=== PATIENT | female | born 1990 | race Caucasian/White ===

== ENCOUNTER 2021-11-01 07:47 | Outpatient (REF) | payer OTHER, SELFPAY ==
[2021-11-01 08:47] LABS: COVID-19 Test Negative (Negative); IDNOW Serial# 16C4AD1C
== END 2021-11-01 07:48 | disposition home or self-care (01) ==
LOC: HO.LAB 07:47
PROVIDERS: Visit Provider Internal Medicine
DX: Z20.822 Contact with and (suspected) exposure to COVID-19 (principal)
CPT/HCPCS: 87635; C9803

== ENCOUNTER 2021-11-06 10:01 | Outpatient (REF) | payer OTHER, SELFPAY ==
[2021-11-06 10:37] LABS: COVID-19 Test Negative (Negative); IDNOW Serial# 08D9AD1C
== END 2021-11-06 10:02 | disposition home or self-care (01) ==
LOC: HO.LAB 10:01
PROVIDERS: Visit Provider Internal Medicine
DX: Z20.822 Contact with and (suspected) exposure to COVID-19 (principal)
CPT/HCPCS: 87635; C9803

== ENCOUNTER 2022-01-01 19:17 | Emergency (ER) | payer OTHER, SELFPAY ==
[2022-01-01 19:23] VITALS: BP 165/94; PULSE 126; RESP 22; TEMP 37.7; O2SAT 100; BMI 36.1
[2022-01-01 20:39] LABS: Appearance Urine TURBID; Color Urine RED; Glucose Urine UA NEG (NEG); Leukocyte Esterase Urine TRACE (NEG); MANUAL DIFF FLAG NO; Nitrite Urine POS (NEG); Specific Gravity - Urine >= 1.030 (1.005-1.025); UACC Culture Trigger YES; Urine Blood 3+ (NEG); Urine Ketones 5 MG/DL (NEG); Urine Protein 2+ MG/DL (NEG-TRACE)
[2022-01-01 20:41] LABS: Basophils Percent Auto 0.3 % (0-2); Eosinophils Absolute Auto 0.3 X10*3/uL (0.0-0.4); Eosinophils Percent Auto 3.2 % (0-4); Hematocrit 43.6 % (37.0-47.0); Hemoglobin 14.7 g/dl (12.0-16.0); Imm Gran Abs Auto 0.02 X10*3/uL (0.00-0.03); Imm Gran Pct Auto 0.2 % (0.0-0.4); Lymphocytes Absolute Auto 3.4 X10*3/uL (1.2-4.9); Lymphocytes Percent Auto 38.5 % (20-40); Mean Corpuscular HGB Conc 33.7 g/dl (31.0-35.0); Mean Platelet Volume 9.5 fL (9.4-12.3); Monocytes Absolute Auto 0.5 X10*3/uL (0.1-1.2); Neutrophils Absolute Auto 4.5 x10*3/uL (2.0-8.3); Neutrophils Percent Auto 51.8 % (45-73); Platelet Count 327 X10*3/uL (160-400); Red Blood Count 4.59 X10*6/uL (4.20-5.50); Red Cell Distribution Width 12.9 % (11.0-16.0); White Blood Count 8.8 X10*3/uL (4.8-10.8)
[2022-01-01 20:42] LABS: UPreg QC Valid YES; Urine Pregnancy NEGATIVE (NEGATIVE)
[2022-01-01 20:59] LABS: Alanine Aminotransferase 12 U/L (0-31); Albumin Level 4.2 g/dL (3.5-5.0); Alkaline Phosphatase 103 U/L (39-117); Anion Gap 10 (12-20); Aspartate Amino Transferase 15 U/L (5-31); Bilirubin Total < 0.2 mg/dL (0.0-1.0); Blood Urea Nitrogen 8 mg/dL (9-16); Calcium 9.5 mg/dL (8.4-10.2); Carbon Dioxide 28 mmol/L (22-29); Chloride 105 mmol/L (96-108); Creatinine Clr Calc Pharmacy 116.5; Estimated Glomerular Filt Rate > 60; Glucose Random 95 mg/dL (60-115); Potassium 3.9 mmol/L (3.3-5.1); Sodium 139 mmol/L (135-145); Total Protein 7.6 g/dL (6.5-8.0)
[2022-01-01 21:05] LABS: Mucus Urine 1+ /LPF; Squamous Epithelial Cell Urine 2+ /LPF; WBC Urine 0-2 /HPF (0-4)
[2022-01-01 21:32] LABS: Influenza A Negative (Negative); Influenza B2 Negative (Negative)
[2022-01-01 21:33] LABS: COVID-19 Test Negative (Negative); IDNOW Serial# 16C4AD1C
--- NOTE | 2022-01-01 23:34 | ED.HA ---
HPI - Headache General Chief Complaint: Headache Stated Complaint: migraine Time Seen by Provider: 01/01/22 23:34 Source: patient Mode of arrival: ambulatory Limitations: no limitations History of Present Illness HPI Narrative: Patient history of migraine in complaining of headache for last 4 days also some cold symptoms and low-grade fever associated with nausea and abdominal pain no chest pain no shortness of breath gets migraine very often to 3 times a month Related Data Previous Rx's Medication Instructions Recorded ctrunzqptz-uofwrbvyoldrz-ijkttxyw 1 cap PO Q6H PRN #20 cap 01/02/22 50 mg-300 mg-40 mg capsule (Fioricet) Allergies Allergy/AdvReac Type Severity Reaction Status Date / Time doxycycline [DOXYCYCLINE] Allergy Unknown UNKNOWN Unverified 05/24/20 19:34 hydromorphone [From DILAUDID] Allergy Unknown UNKNOWN Unverified 05/24/20 19:34 morphine [MORPHINE] Allergy Unknown UNKNOWN Unverified 05/24/20 19:34 Review of Systems Review of Systems: Yes all other systems are reviewed and are negative [facility] Social History Social History Advance Directives: No Advance Directives Information Provided: Yes Physical Exam Vital Signs: Vital Signs: Last Vital Signs Temp 99.9 F 01/01/22 19:23 Pulse 76 01/02/22 01:45 Resp 16 01/02/22 01:45 BP 126/78 01/02/22 01:45 Pulse Ox 98 01/02/22 01:45 BMI result Body Mass Index 36.1 Appearance: Alert. Oriented X3. No acute distress. ENT: Pharynx normal. Oral Mucosa moist no temporal artery tenderness Neck: Normal inspection. Neck supple. CVS: Normal heart rate and rhythm. Pulses normal. Respiratory: No respiratory distress. Equal air entry bilateral, Abdomen: Soft and nontender. Bowel sounds are present, no mass palpable, Skin: Skin warm and dry. Normal skin color. Normal skin turgor. Extremities: No lower extremity edema. No calf tenderness Neuro: Oriented X 3. MDM - Headache MDM Narrative Medical decision making narrative: Patient did not respond to Imitrex in like the side effect of Imitrex responded to IV Benadryl Reglan and Toradol discharge patient home Medical Records Medical records narrative: Patient history of migraine headache for response to Imitrex responded to IV Reglan Benadryl and Toradol will discharge patient home Lab Data Attestation: I reviewed the patient's lab results. Result diagrams: 01/01/22 20:28 01/01/22 20:29 Labs: Lab Results 01/01/22 01/01/22 01/01/22 Range/Units 19:52 19:52 20:28 WBC 8.8 (4.8-10.8) X10*3/uL RBC 4.59 (4.20-5.50) X10*6/uL Hgb 14.7 (12.0-16.0) g/dl Hct 43.6 (37.0-47.0) % MCV 95.0 (80.0-98.0) fL MCH 32.0 (27.0-33.0) pg MCHC 33.7 (31.0-35.0) g/dl RDW 12.9 (11.0-16.0) % Plt Count 327 (160-400) X10*3/uL MPV 9.5 (9.4-12.3) fL Immature Gran % (Auto) 0.2 (0.0-0.4) % Neut % (Auto) 51.8 (45-73) % Lymph % (Auto) 38.5 (20-40) % [place] % (Auto) 6.0 (2-11) % Eos % (Auto) 3.2 (0-4) % Baso % (Auto) 0.3 (0-2) % Lymph # (Auto) 3.4 (1.2-4.9) X10*3/uL [place] # (Auto) 0.5 (0.1-1.2) X10*3/uL Eos # (Auto) 0.3 (0.0-0.4) X10*3/uL Baso # (Auto) 0.0 (0.0-0.2) X10*3/uL Abs Immat Gran (auto) 0.02 (0.00-0.03) X10*3/uL Absolute Neuts (auto) 4.5 (2.0-8.3) x10*3/uL Absolute Nucleated RBC 0.000 (0.0-0.012) X10*3/uL Nucleated RBC % (auto) 0.0 (0.0-0.2) /100WBC Sodium (135-145) mmol/L Potassium (3.3-5.1) mmol/L Chloride (96-108) mmol/L Carbon Dioxide (22-29) mmol/L Anion Gap (12-20) BUN (9-16) mg/dL Creatinine (0.5-1.4) mg/dL Estim Creat Clear Calc Estimated GFR Random Glucose (60-115) mg/dL Calcium (8.4-10.2) mg/dL Total Bilirubin (0.0-1.0) mg/dL AST (5-31) U/L ALT (0-31) U/L Alkaline Phosphatase (39-117) U/L Total Protein (6.5-8.0) g/dL Albumin (3.5-5.0) g/dL Urine Color Urine Appearance Urine pH (5.0-8.0) Ur Specific [place] (1.005-1.025) Urine Protein (NEG-TRACE) MG/DL Urine Glucose (UA) (NEG) MG/DL Urine Ketones (NEG) MG/DL Urine Blood (NEG) Urine Nitrite (NEG) Ur Leukocyte Esterase (NEG) Urine RBC (0) /HPF Urine WBC (0-4) /HPF Ur Squamous Epith Cells /LPF Urine Bacteria /LPF Urine Mucus /LPF Urine Test (NEGATIVE) COVID-19 (HOLLY) Negative (Negative) COVID-19 Clin Com See Note Influenza Type A (KEANU) Negative (Negative) Influenza Type B (KEANU) Negative (Negative) Influenza A & B Note See Note 01/01/22 01/01/22 01/01/22 Range/Units 20:28 20:28 20:29 WBC (4.8-10.8) X10*3/uL RBC (4.20-5.50) X10*6/uL Hgb (12.0-16.0) g/dl Hct (37.0-47.0) % MCV (80.0-98.0) fL MCH (27.0-33.0) pg MCHC (31.0-35.0) g/dl RDW (11.0-16.0) % Plt Count (160-400) X10*3/uL MPV (9.4-12.3) fL Immature Gran % (Auto) (0.0-0.4) % Neut % (Auto) (45-73) % Lymph % (Auto) (20-40) % [place]field % (Auto) (2-11) % Eos % (Auto) (0-4) % Baso % (Auto) (0-2) % Lymph # (Auto) (1.2-4.9) X10*3/uL [place] # (Auto) (0.1-1.2) X10*3/uL Eos # (Auto) (0.0-0.4) X10*3/uL Baso # (Auto) (0.0-0.2) X10*3/uL Abs Immat Gran (auto) (0.00-0.03) X10*3/uL Absolute Neuts (auto) (2.0-8.3) x10*3/uL Absolute Nucleated RBC (0.0-0.012) X10*3/uL Nucleated RBC % (auto) (0.0-0.2) /100WBC Sodium 139 (135-145) mmol/L Potassium 3.9 (3.3-5.1) mmol/L Chloride 105 (96-108) mmol/L Carbon Dioxide 28 (22-29) mmol/L Anion Gap 10 L (12-20) BUN 8 L (9-16) mg/dL Creatinine 0.66 (0.5-1.4) mg/dL Estim Creat Clear Calc 116.5 Estimated GFR > 60 Random Glucose 95 (60-115) mg/dL Calcium 9.5 (8.4-10.2) mg/dL Total Bilirubin < 0.2 (0.0-1.0) mg/dL AST 15 (5-31) U/L ALT 12 (0-31) U/L Alkaline Phosphatase 103 (39-117) U/L Total Protein 7.6 (6.5-8.0) g/dL Albumin 4.2 (3.5-5.0) g/dL Urine Color RED A Urine Appearance TURBID Urine pH 5.0 (5.0-8.0) Ur Specific [place] >= 1.030 H (1.005-1.025) Urine Protein 2+ H (NEG-TRACE) MG/DL Urine Glucose (UA) NEG (NEG) MG/DL Urine Ketones 5 (NEG) MG/DL Urine Blood 3+ H (NEG) Urine Nitrite POS H (NEG) Ur Leukocyte Esterase TRACE H (NEG) Urine RBC 76-150 H (0) /HPF Urine WBC 0-2 (0-4) /HPF Ur Squamous Epith Cells 2+ /LPF Urine Bacteria NONE /LPF Urine Mucus 1+ /LPF Urine Test NEGATIVE (NEGATIVE) COVID-19 (HOLLY) (Negative) COVID-19 Clin Com Influenza Type A (KEANU) (Negative) Influenza Type B (KEANU) (Negative) Influenza A & B Note Discharge Plan Discharge Clinical Impression: Migraine Patient Disposition: Home, Self-Care Instructions: Migraine Headache (ED) Additional Instructions: Rest at home Take medication for migraine as prescribed and follow with PCP Prescriptions: New rbyikjacdf-awewtwllpexne-tnkb [Fioricet] 50-300-40 mg capsule 1 cap PO Q6H PRN (Reason: headache) Qty: 20 0RF Interventions: ED Discharge Assessment Last Done: 01/02/22 02:24 Discharge Date/Time: 01/02/22 02:25
[2022-01-02] MEDS: SUMAtriptan succinate 6 MG/0.5 ML VIAL SUBCUT (00:08)
[2022-01-02] MEDS: Ondansetron ODT 4 MG TAB.RAPDIS TRANSLINGU (00:08)
[2022-01-02] MEDS: diphenhydrAMINE HCL 50 MG/ML VIAL 25 MG IVPUSH (01:23)
[2022-01-02] MEDS: Ketorolac Tromethamine 30 MG/ML VIAL IVPUSH (01:24)
[2022-01-02] MEDS: Metoclopramide HCl 10 MG/2 ML VIAL IVPUSH (01:24)
[2022-01-02 01:45] VITALS: BP 126/78; PULSE 76; RESP 16; O2SAT 98
== END 2022-01-02 02:25 | disposition home or self-care (01) ==
PROVIDERS: Emergency Provider Internal Medicine; PCP Internal Medicine
DX: G43.009 Migraine without aura, not intractable, without status migrainosus (principal); Z20.822 Contact with and (suspected) exposure to COVID-19
CPT/HCPCS: 80053; 81001; 81025; 85025; 87086; 87502; 87635; 96372; 96374; 96375; 99284; J1200; J1885; J2765; J3030

== ENCOUNTER 2025-04-06 13:49 | Outpatient (AMB) | payer OTHER, SELFPAY ==
--- NOTE | 2025-04-06 13:53 | MHC.OFFVIS ---
Intake Visit Reasons: sooner appt med issues Allergies doxycycline (DOXYCYCLINE) Allergy (Unknown, Unverified 04/06/25 13:54) UNKNOWN hydromorphone (From DILAUDID) Allergy (Unknown, Unverified 04/06/25 13:54) UNKNOWN morphine (MORPHINE) Allergy (Unknown, Unverified 04/06/25 13:54) UNKNOWN Medication List - Last Reconciled 04/06/25 by Tiffanie Kaiser, TU aripiprazole 15 mg PO QAM soajvmjidn-cqjdvbmaviobe-jfuo 50-300-40 mg (Fioricet) 1 cap PO Q6H PRN dextroamphetamine-amphetamine 20 mg ER (Adderall XR) 20 mg orally 1 cap in the morning and 1 cap at noon; Partial Fill upon patient request. 30 days pantoprazole 40 mg PO DAILY tirzepatide (weight loss) (Zepbound) 10 mg subcut QWEEK trazodone 50 - 100 mg PO BEDTIME PRN vitamin B complex 1 cap PO DAILY zolpidem 5 mg PO BEDTIME PRN HPI Comments Details: She was tired. She started Zepbound for weight loss around 01/2025 and noticed she was becoming much more tired beginning around 02/2025. She started 10mg dose this past week. She had labs done by weight management clinic which apparently showed some low vitamin levels that were replaced. Adderall seems to only be lasting about 4 hours now. She was extremely tired in the afternoon and could fall asleep easily. She would not drive after 4pm because of how tired tired she was. Energy and focus was not so good anymore. Sleep at night was okay with trazodone 100mg prescribed by psychiatrist in addition to zolpidem 5mg. Headaches were okay. Prior to starting Zepbound, Adderall XR 20mg twice a day helped with energy, feeling less fatigue, ability to focus and get tasks done. She was started on trazodone 100mg in addition to zolpidem by psychiatrist at the beginning of 2024 and sleep was better, able to fall asleep and stay asleep. Previously, was exhausted by 6:30pm. Had trouble maintaining sleep. She tried hydroxyzine, but was still waking up during the night and not able to fall back to sleep. Medication made her feel more tired. She also trazadone and melatonin which did not help. Headaches are okay, often around menses with some photophobia, sonophobia, and nausea. She has tried Tylenol and Excedrin for headaches which do not help. 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 In 2018, she began feeling tired and exhausted constantly and sleeping excessively. At that time, she was getting 8 hours of restful sleep at night and then napping in the morning from 9:30 to 12:30 after taking her kids to school. She still feels tired. She cannot sit and watch TV and is very sleepy. She's had a sleep study which was unremarkable. The symptoms came on without any recent sickness a viral syndrome preceding the symptoms. She's had extensive lab work which has been unremarkable. She does not feel depressed or anxious. Her home life is stable. [facility] Medical History (Updated 04/06/25 @ 13:57 by Tiffanie Kaiser CNP) Demyelinating disease of central nervous system Chronic fatigue syndrome Fibromyalgia Hypersomnia Tension headache Hypertension Insomnia Menstrual migraine Review of Systems Const Denies chills, Denies daytime sleepiness, Reports difficulty sleeping, Reports fatigue, Denies fever(s), Denies frequent falls, Reports headache(s), Denies increased appetite, Denies poor appetite, Denies snoring, Denies weakness, Denies weight gain and Denies weight loss Eyes Denies loss of vision ENT Denies vertigo, Denies dizziness, Reports headache(s) and Denies neck pain Card Denies chest pain at rest, Denies chest pain with activity, Denies syncope, Denies leg edema, Denies palpitations, Denies dyspnea and Denies dyspnea on exertion Resp Denies cough, Denies dyspnea, Denies dyspnea on exertion and Denies snoring GI Denies abdominal pain, Denies constipation, Denies heartburn, Denies diarrhea and Denies nausea Denies urinary frequency, Denies urinary incontinence and Denies urinary urgency Musc Denies abnormal gait, Reports back pain, Denies myalgias, Denies arthralgias, Denies neck pain, Denies numbness and Denies tingling Neuro Denies abnormal gait, Denies vertigo, Denies dizziness, Denies syncope, Denies frequent falls, Reports headache(s), Denies lack of coordination, Denies loss of vision, Denies memory loss, Denies numbness, Denies Other visual disturbances, Denies restless legs, Denies seizure-like activity, Denies tingling, Denies paresthesias, Denies tremor(s) and Denies weakness Psych Reports anxiety, Reports depression, Denies auditory hallucinations, Denies memory loss and Denies visual hallucinations Endo Reports fatigue and Denies palpitations Physical Exam Const Other: General Appearance:? normal, in no acute distress. Heart:? S1, S2 normal, no murmurs. Lungs:? clear anteriorly and posteriorly. Musculoskeletal:? normal. Extremities:? no edema. Psych:? alert, oriented, cognitive function intact, cooperative with exam. Neuro Other: Abnormal Neurological Findings:?none.? Mental Status: alert and oriented X 3. Normal attention, orientation, memory, and affect. Cranial Nerves: Pupils are equal, round, and reactive to light. External ocular muscles are intact. Visual torres are full, no ptosis. Face is symmetrical, no facial weakness or droop. Facial sensations are normal. Tongue protrudes in midline. Palate elevates symmetrically. Shoulder shrugging is normal Motor Examination: Normal muscle tone, bulk and strength. No atrophy or fasciculations. No drift of the extended upper extremities. DTR 2+. Plantars are flexor. Straight Leg Raisin degrees. Sensory Exam: Normal light touch, temperature, pinprick, vibration, and joint-position sensations. Rhomberg sign is absent. Coordination: No ataxia. No titubation. Toxroc-oi-cyem, jzgg-nadz-syiu test, and rapid alternating movements were normal. Gait Exam: Within normal limits. Cerebellar Signs: Drpgji-zd-niub and hqti-kk-ijos is normal. No dysdiadochokinesia. Extrapyramidal System: No tremor, rigidity with normal facial expressions. No bradykinesia. No bradyphrenia. Normal arm swing and posture. No propulsion or retropulsion. Speech: Normal. No dysphasia or dysarthria. Assessment & Plan Assessment & Plan (1) Chronic fatigue syndrome: Code(s): G93.32 - Myalgic encephalomyelitis/chronic fatigue syndrome Category: Medical Plan: Increased fatigue likely related to Zepbound, as fatigue is a side effect of this medication and symptoms started about a month after starting this medication. Recommend discussing with provider if she could still benefit from this medication at a lower dose, which may help to reduce side effects. In the mean time, will try to add additional small Adderall dose in afternoon. Start Adderall 10mg 1 tablet at noon (with Adderall XR 20mg capsule at noon), use/side effects reviewed. Continue Adderall XR 20mg 1 capsule twice a day. (2) Insomnia: Code(s): G47.00 - Insomnia, unspecified Category: Medical Qualifiers: Insomnia type: unspecified Qualified Code(s): G47.00 - Insomnia, unspecified Plan: Continue zolpidem 5mg 1 tablet at bedtime, use/side effects reviewed. (3) Menstrual migraine: Code(s): G43.829 - Menstrual migraine, not intractable, without status migrainosus Category: Medical Qualifiers: Status migrainosus presence: without status migrainosus Intractability: not intractable Qualified Code(s): G43.829 - Menstrual migraine, not intractable, without status migrainosus Plan Meds tried for sleep: Trazodone, hydroxyzine, melatonin Medications: New dextroamphetamine-amphetamine 10 mg (Adderall) Partial Fill upon patient request. 10 mg PO .daily at noon 30 tabs 0RF 30 days Coding Level of Care Code Est Pt Level 4 (17390) Diagnoses Chronic fatigue syndrome G93.32 Insomnia, unspecified type G47.00 Insomnia type: unspecified Menstrual migraine without status migrainosus, not intractable G43.829 Status migrainosus presence: without status migrainosus Intractability: not intractable
--- OUTSIDE RECORDS SUMMARY | 2025-04-06 14:02 | XMS_ITS | Clinical Summary ---
Author Organization [facility] [address] [place] [address] [place] [phone] Phone Care Team Providers Care Ceramics Technician Name Role Phone Sheree Astudillo MD Primary Care Provider Allergies Active Allergy Reactions Criticality Noted Date Comments Bupropion 10/09/2022 Itching, hives Doxycycline Hives,Swelling High 01/20/2006 Hydromorphone Hcl Hives 06/17/2012 Latex Hives 09/03/2011 Levonorgestrel-Ethinyl Estrad Swelling Medium 01/20/2006 rash Morphine Shortness of breath,Wheezing High 07/08/2016 Omeprazole Itching,Swelling 07/08/2016 Medications albuterol sulfate (ProAir RespiClick) 90 mcg/actuation aerosol powdr breath activated Inhale 8 g into the lungs every 6 hours as needed for Other (SOB, Wheeing, Cough). Dispense 1 inhaler 06/25/20 21 Active amphetamine-d extroamphetam ine XR (ADDERALL XR) 20 mg 24 hr capsule Take 1 Capsule by mouth every morning. Prescribed by Neurologist [place] [facility] Active amphetamine-d extroamphetam ine (ADDERALL) 10 mg tablet 2 tablets (20 mg total). Active diclofenac (VOLTAREN) 1 % topical gel Apply 2 g topically 4 times daily. Shoulder Pain 06/13/20 24 Active wheat dextrin 3 gram/4 gram powder Take 4 g by mouth daily. 10/13/19 24 Active cholecalcifer ol (VITAMIN D-3) 50 mcg (2,000 unit) capsule TAKE 1 CAP BY MOUTH DAILY FOR 90 DAYS. 90 capsule 07/28/20 24 Active pantoprazole (PROTONIX) 40 mg EC tablet TAKE 1 TABLET BY MOUTH EVERY DAY DO NOT CRUSH, CHEW, OR SPLIT 90 tablet 01/26/20 25 Active b complex vitamins capsule TAKE 1 CAPSULE BY MOUTH EVERY DAY 90 capsule 1 02/18/20 25 Active tirzepatide, weight loss, (Zepbound) 10 mg/0.5 mL injection Inject 0.5 mL (10 mg total) under the skin every 7 (seven) days. 2 mL 04/03/20 25 025 Active tirzepatide, weight loss, (Zepbound) 7.5 mg/0.5 mL injectionIndi cations:Overw eight (BMI 25.0-29.9) Inject 0.5 mL (7.5 mg total) under the skin every 7 (seven) days. 2 mL 02/24/20 25 025 Discontinued tirzepatide, weight loss, (Zepbound) 10 mg/0.5 mL injection Inject 0.5 mL (10 mg total) under the skin every 7 (seven) days. 2 mL 03/21/20 25 025 Discontinued(Re order) Active Problems Problem Noted Date Diagnosed Date Iron deficiency anemia 07/11/2021 Erosive esophagitis 10/11/2018 Snoring 05/05/2018 Overview (06/23/2024): 04/2018 Home Sleep Study did not reveal sleep apnea. Migraine without status migrainosus, not intract able 04/04/2017 Hypokalemia 10/17/2016 Pure hypercholesterolemia 09/19/2016 Hand pain 02/23/2013 Overview (06/23/2024): Right thumb IP joint - started early January 2013 Eczema 01/25/2013 Depression 04/25/2011 Headache 08/17/2008 Overview (06/23/2024): Has seen neurologist. 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 Infectious mononucleosis 09/01/2001 Encounters Date Type Department Care Team Description 02/23/2025 8:15 AM EDT Office Visit Bariatric Surgery - [address] [place] [address] Rica Sullivan PA Overweight (BMI 25.0-29.9) (Primary Dx) from Last 3 Months Immunizations Name Administration Dates Next Due DTP 07/04/1993, 0,01/19/1989,1988,1988 Hepatitis B Pediatric (Enger ix B; Recombivax HB) to less than 20 yo 07/31/2000,03/31/2000,02/27/2000 Influenza trivalent, 0.5mL, preservative free (Fluarix; FluLaval; Fluzone) ages 6mo and older (Afluria) 3 years and older 06/02/2011,08/04/2006,06/19/2005 MMR, measles mumps and rubel la Live (Priorix; M-M-R II) 12mo and older 11/23/1989,09/04/1989 OPV 07/04/1993, 0,1988,1987 Td Tetanus diptheria (Tdvax) 7yo and older 04/07/2011,04/01/2001 Tdap Tetanus diptheria acell ular pertussis (Boostrix; Adacel) 7yo and older 06/25/2021 Varicella live (Varivax) 12m o and older 06/18/1996 Surgical History Surgery Date Site/Laterality Comments OTHER SURGICAL HISTORY PROCEDURE: IL LIG/TRNSXJ FLP TUBE ABDL/VAG APPR UNI/BI BARIATRIC SURGERY 05/2016 PROCEDURE: IL LAPS GSTRC RSTRICTIV PX LONGITUDINAL GASTRECTOMY; COMMENT: gastric sleeve by Dr. 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 DX:Tietze's dis ease Migraine, unspecified, witho ut mention of intractable migraine without mention of status migrainosus 06/20/2005 DX:Migraine, uns pecified, without mention of intractable migraine without mention of status migrainosus Infectious mononucleosis 09/01/2001 DX:Infe ctious mononucleosis Unspecified asthma(493.90) 06/20/2004 DX:Un specified asthma(493.90) Venereal disease, unspecified 07/15/2005 DX :Venereal disease, unspecified Esophageal reflux DX:Esophageal reflux Obesity DX:Obesity Eczema 01/25/2013 DX:Eczema Family history of breast cancer 06/07/2013 DX:Family history of breast cancer; COMMENT: pt BRCA negative, low risk Careyck = 10.5% Erosive esophagitis 10/11/2018 DX:Erosive e sophagitis Tobacco use 10/11/2018 DX:Tobacco use Sore throat DX:Sore throat Dysphagia DX:Dysphagia Dysphagia DX:Dysphagia Hiatal hernia DX:Hiatal hernia History of gastric surgery DX:Hi story of gastric surgery Gastro-esophageal reflux dis ease without esophagitis DX:Gastro-esophageal reflux disease without esophagitis Family History Medical History Relation Name Comments Breast cancer Aunt paternal aunt Arthritis Father Coronary artery disease Father bypa ss, [place] Diabetes Father Hypertension Father Stroke Father Other: ca ovaries Father's side great aun t Colon cancer Maternal Grandfather Lung cancer Maternal Grandfather smoker Other: melanona Maternal Grandmother Other: ovarian cancer Maternal Grandmother Arthritis Mother Coronary artery disease Mother bypa ss Diabetes Mother Spontaneous Abortions Mother Breast cancer Mother's side 1 maternal au nt Colon cancer Mother's side 1 great aunt Ovarian cancer Mother's side 1 maternal a unt >40 Lung cancer Mother's side 2 mat great au nt/ 2nd cousin Hypertension Paternal Grandfather Other: cancer of lung Uncle patern al uncle-possible other cancer too Blindness Neg Hx Cataracts Neg Hx Glaucoma Neg Hx Macular degeneration Neg Hx Strabismus Neg Hx Relation Name Status Comments Aunt Father Father's side Maternal Grandfather Maternal Grandmother Mother Alive Mother's side 1 Mother's side 2 Paternal Grandfather Paternal Grandmother Sister Alive Uncle Social History Tobacco Use Types Packs/Day Years Used Date Smoking Tobacco: Every Day Cigarettes 0.5 7.3 Started: 12/17/2017 Smokeless Tobacco: Never Alcohol Use Standard Drinks/Week Comments No 0 (1 standard drink = 0.6 oz pur e alcohol) Comments Unknown Sex and Gender Information Value Date Recorded Sex Assigned at Not on file Legal Sex Female 10:59 PM EST Gender Identity Not on file Sexual Orientation Not on file Obstetrics History Last Filed Vital Signs Vital Sign Reading Time Taken Comments Blood Pressure 126/79 02/23/2025 8:14 AM EDT Pulse 130 02/23/2025 8:14 AM EDT Temperature 36.6 C (97.9 F) 02/23/2025 8:14 AM EDT Respiratory Rate - - Oxygen Saturation - - Inhaled Oxygen Concentration - - Weight 67.1 kg (148 lb) 02/23/2025 8:14 AM EDT Height 152.4 cm (5') 02/23/2025 8:14 AM EDT Body Mass Index 28.9 02/23/2025 8:14 AM EDT Plan of Treatment Upcoming Encounters Date Type Department Care Team (Late st Contact Info) Description 06/20/2025 10:00 AM EDT Office Visit Bariatric Surgery - [place] [address] [facility] [address] [place] [phone] Rica Sullivan PA [address] [address] Health Maintenance Due Date Last Done Comments Pneumococcal Vaccine: Pediatrics (0 to 5 Years) and At-Risk Patients (6 to 49 Years) (1 of 2 - PCV) 2007 Social Influencers of Health Screening 08/10/2022 COVID-19 Vaccine (3 - season) 2024 01/22/2021, 12/26/2020 Depression Screening 09/07/2024 Influenza Vaccine (#1) 2025 1, 08/04/2006, 06/19/2005 Hypertension/CHF/CAD Annual BMP Blood Test 12/22/2025 12/22/2024, 04/11/2024, 04/11/2024 Cervical Cancer Screening: HPV 07/04/2027 07/04/2022 Cholesterol Screening (Lipid Panel) 06/09/2028 06/09/2023 DTaP,Tdap,and Td Vaccines (9 - Td or Tdap) 06/25/2031 06/25/2021, 04/07/2011, 04/01/2001, Additional history exists MMR Vaccines Completed 11/23/1989, 09/04/1989 IPV Vaccines Completed 07/04/1993, 11/05, 1988, Additional history exists Varicella Vaccines Aged Out 06/18/1996 No longer eligible based on patient's age to complete this topic Hepatitis B Vaccines Completed 07/31/2000, 03/31/2000, 02/27/2000 HIV Screening Completed 04/22/2016 Hepatitis C Screening Completed 04/22/2016 HIB Vaccines Aged Out No longer eligi ble based on patient's age to complete this topic HPV Vaccines Aged Out No longer eligi ble based on patient's age to complete this topic Hepatitis A Vaccines Aged Out No long er eligible based on patient's age to complete this topic Meningococcal ACWY Vaccine Aged Out N o longer eligible based on patient's age to complete this topic Meningococcal B Vaccine Aged Out No l onger eligible based on patient's age to complete this topic RSV Immunization Patients Under 20 months Aged Out No longer eligible based on patient's age to complete this topic Procedures Procedure Name Priority Date/Time Associated Diagnosis Comments COMPREHENSIVE METABOLIC PANEL Routine 12/22/2024 9:01 AM EDT History of Danny-en-Y gastric bypass Obesity (BMI 30.0-34.9) LIPID PANEL Routine 06/09/2023 HPV Routine 07/04/2022 HEPATITIS C SCREENING Routine 04/22/2016 HIV SCREENING Routine 04/22/2016 from Last 3 Months or Most Recently Relevant to Health Maintenance Results * (ABNORMAL) Comprehensive metabolic panel (12/22/2024 9:01 AM EDT) Sodium 137 133 - 145 mmol/L LAB CHEMISTRY METHOD 12/22/2024 11:20 AM EDT [facility] Potassium 4.4 3.5 - 5.5 mmol/L LAB CHEMISTRY METHOD 12/22/2024 11:20 AM [facility] Chloride 104 96 - 110 mmol/L LAB CHEMISTRY METHOD 12/22/2024 11:20 AM [facility] CO2 25 21 - 32 mmol/L LAB CHEMISTRY METHOD 12/22/2024 11:20 AM [facility] Anion Gap 8 3 - 11 LAB CHEMISTRY METHOD 12/22/2024 11:20 AM [facility] Glucose 120(H) 70 - 100 mg/dL LAB CHEMISTRY METHOD 12/22/2024 11:20 AM [facility] BUN 7 5 - 25 mg/dL LAB CHEMISTRY METHOD 12/22/2024 11:20 AM [facility] Creatinine 0.83 0.50 - 1.10 mg/dL LAB CHEMISTRY METHOD 12/22/2024 11:20 AM [facility] eGFR 94 >=60 mL/min/1. 73m2 LAB CHEMISTRY METHOD 12/22/2024 11:20 AM [facility] Comment:Calculation based on the Chronic Kidney Disease Epidemiology Collaboration (CKD-EPI) equation refit without adjustment for race. BUN/Creatinine Ratio 8.4 LAB CHEMISTRY METHOD 12/22/2024 11:20 AM [facility] Calcium 9.4 8.5 - 10.5 mg/dL LAB CHEMISTRY METHOD 12/22/2024 11:20 AM [facility] AST (SGOT) 22 10 - 42 unit/L LAB CHEMISTRY METHOD 12/22/2024 11:20 AM [facility] ALT (SGPT) 18 10 - 60 unit/L LAB CHEMISTRY METHOD 12/22/2024 11:20 AM [facility] Alkaline Phosphatase 97 42 - 121 unit/L LAB CHEMISTRY METHOD 12/22/2024 11:20 AM [facility] Total Protein 7.5 6.0 - 8.0 g/dL LAB CHEMISTRY METHOD 12/22/2024 11:20 AM EDT [facility] Albumin 3.6 3.2 - 5.0 g/dL LAB CHEMISTRY METHOD 12/22/2024 11:20 AM EDT [facility] Total Bilirubin 0.3 0.0 - 1.4 mg/dL LAB CHEMISTRY METHOD 12/22/2024 11:20 AM EDT [facility] Blood Venous blood specimen / Unknown Venipuncture / Unknown 12/22/2024 9:01 AM EDT 12/22/2024 9:01 AM EDT Rica COATES LAB BLOOD ORDERABLES Final R esult [facility] ([facility]) [facility] [address] [place] [address], * (ABNORMAL) Lipid panel (06/09/2023) [facility] LDL/HDL Ratio 4 0 - 4 Triglycerides 92 0 - 150 mg/dL Cholesterol 207(A) 0 - 200 mg/dL HDL 58 >=40 mg/dL LDL Cholesterol 131(A) 0 - 100 mg/dL Blood Venous blood specimen / Unknown Result [facility] Provider LAB BLOOD ORDERABLES Rupal l Result * Cervical Cancer Screening: HPV (07/04/2022) [facility] Cervical Cancer Screening: HPV Negative, Abstracted Historical Provider HEALTH MAINTENANCE Final Result * HIV Screening (04/22/2016) [facility] HIV Screening Abstracted Result [facility] Provider HEALTH MAINTENANCE Final Result * Hepatitis C Screening (04/22/2016) [facility] Hepatitis C Screening Abstracted Historical Provider HEALTH MAINTENANCE Final Result from Last 3 Months or Most Recently Relevant to Health Maintenance Insurance [facility] Care Teams Ceramics Technician Relationship Specialty Start Date End Date Sheree Astudillo MD [address] [place] [phone] PCP - General Internal Medicine 07/28/24
--- OUTSIDE RECORDS SUMMARY | 2025-04-06 14:02 | XMS_ITS ---
Author Name [facility] Organization Unknown Care Team Organization Name Specialty Phone Email Start Date End Da te [facility] LYUBOV GARIMA Primary Care 07/15/2022 4
== END 2025-04-06 14:16 | disposition home or self-care (01) ==
LOC: HO.HSM 13:49
PROVIDERS: PCP Internal Medicine; Visit Provider Registered Nurse
DX: G93.32 Myalgic encephalomyelitis/chronic fatigue syndrome (principal); G47.00 Insomnia, unspecified; G43.829 Menstrual migraine, not intractable, without status migrainosus
CPT/HCPCS: 99214

== ENCOUNTER → 2025-04-06 13:49 | Outpatient (BNVA) | payer OTHER, SELFPAY | PROVIDERS: PCP Internal Medicine; Visit Provider Registered Nurse | DX: G93.32 Myalgic encephalomyelitis/chronic fatigue syndrome (principal); G47.00 Insomnia, unspecified; G43.829 Menstrual migraine, not intractable, without status migrainosus | CPT/HCPCS: 99212 ==

== ENCOUNTER 2025-07-06 08:58 | Outpatient (AMB) | payer OTHER, SELFPAY ==
--- NOTE | 2025-07-06 09:05 | MHC.OFFVIS ---
Intake Visit Reasons: 1M Chronic fatigue, insomnia Allergies doxycycline (DOXYCYCLINE) Allergy (Unknown, Unverified 07/06/25 09:06) UNKNOWN hydromorphone (From DILAUDID) Allergy (Unknown, Unverified 07/06/25 09:06) UNKNOWN morphine (MORPHINE) Allergy (Unknown, Unverified 07/06/25 09:06) UNKNOWN Medication List - Last Reconciled 07/06/25 by Tiffanie Kaiser, TU aripiprazole 15 mg PO QAM tmavdklahg-umvuuwztyskqd-gcmd 50-300-40 mg (Fioricet) 1 cap PO Q6H PRN dextroamphetamine-amphetamine 10 mg (Adderall) 10 mg PO .daily at noon 30 days dextroamphetamine-amphetamine 20 mg ER (Adderall XR) 20 mg orally 1 cap in the morning and 1 cap at noon; Partial Fill upon patient request. 30 days pantoprazole 40 mg PO DAILY tirzepatide (weight loss) (Zepbound) 10 mg subcut QWEEK trazodone 50 - 100 mg PO BEDTIME PRN vitamin B complex 1 cap PO DAILY zolpidem 5 mg PO BEDTIME PRN 30 days HPI Comments Details: She was doing okay. Increased afternoon dose of Adderall was helping. Energy and focus was better with medication. Daily functioning was improved. She was able to get through the afternoon and evening okay. She was falling asleep around 9:30-10pm and sleep at night was okay. Headaches were okay. Increased fatigued starting around 02/2025. Started Zepbound for weight loss around 01/2025, labs done by weight management clinic apparently showed some low vitamin levels that were replaced. Adderall was not lasting as long. Extremely tired in the afternoon and could fall asleep easily, was not driving after 4pm because of how tired she was. Sleep was okay at night with medications. Previously, Adderall XR 20mg twice a day helped with energy, feeling less fatigue, ability to focus and get tasks done. She was started on trazodone 100mg in addition to zolpidem by psychiatrist at the beginning of 2024 and sleep was better, able to fall asleep and stay asleep. Previously, was exhausted by 6:30pm. Had trouble maintaining sleep. She tried hydroxyzine, but was still waking up during the night and not able to fall back to sleep. Medication made her feel more tired. She also trazadone and melatonin which did not help. Headaches are okay, often around menses with some photophobia, sonophobia, and nausea. She has tried Tylenol and Excedrin for headaches which do not help. 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 In 2018, she began feeling tired and exhausted constantly and sleeping excessively. At that time, she was getting 8 hours of restful sleep at night and then napping in the morning from 9:30 to 12:30 after taking her kids to school. She still feels tired. She cannot sit and watch TV and is very sleepy. She's had a sleep study which was unremarkable. The symptoms came on without any recent sickness a viral syndrome preceding the symptoms. She's had extensive lab work which has been unremarkable. She does not feel depressed or anxious. Her home life is stable. [facility] Medical History (Updated 04/06/25 @ 13:57 by Tiffanie Kaiser CNP) Demyelinating disease of central nervous system Chronic fatigue syndrome Fibromyalgia Hypersomnia Tension headache Hypertension Insomnia Menstrual migraine Review of Systems Const Denies chills, Denies daytime sleepiness, Reports difficulty sleeping, Reports fatigue, Denies fever(s), Denies frequent falls, Reports headache(s), Denies increased appetite, Denies poor appetite, Denies snoring, Denies weakness, Denies weight gain and Denies weight loss Eyes Denies loss of vision ENT Denies vertigo, Denies dizziness, Reports headache(s) and Denies neck pain Card Denies chest pain at rest, Denies chest pain with activity, Denies syncope, Denies leg edema, Denies palpitations, Denies dyspnea and Denies dyspnea on exertion Resp Denies cough, Denies dyspnea, Denies dyspnea on exertion and Denies snoring GI Denies abdominal pain, Denies constipation, Denies heartburn, Denies diarrhea and Denies nausea Denies urinary frequency, Denies urinary incontinence and Denies urinary urgency Musc Denies abnormal gait, Reports back pain, Denies myalgias, Denies arthralgias, Denies neck pain, Denies numbness and Denies tingling Neuro Denies abnormal gait, Denies vertigo, Denies dizziness, Denies syncope, Denies frequent falls, Reports headache(s), Denies lack of coordination, Denies loss of vision, Denies memory loss, Denies numbness, Denies Other visual disturbances, Denies restless legs, Denies seizure-like activity, Denies tingling, Denies paresthesias, Denies tremor(s) and Denies weakness Psych Reports anxiety, Reports depression, Denies auditory hallucinations, Denies memory loss and Denies visual hallucinations Endo Reports fatigue and Denies palpitations Physical Exam Const Other: General Appearance:? normal, in no acute distress. Heart:? S1, S2 normal, no murmurs. Lungs:? clear anteriorly and posteriorly. Musculoskeletal:? normal. Extremities:? no edema. Psych:? alert, oriented, cognitive function intact, cooperative with exam. Neuro Other: Abnormal Neurological Findings:?none.? Mental Status: alert and oriented X 3. Normal attention, orientation, memory, and affect. Cranial Nerves: Pupils are equal, round, and reactive to light. External ocular muscles are intact. Visual torres are full, no ptosis. Face is symmetrical, no facial weakness or droop. Facial sensations are normal. Tongue protrudes in midline. Palate elevates symmetrically. Shoulder shrugging is normal Motor Examination: Normal muscle tone, bulk and strength. No atrophy or fasciculations. No drift of the extended upper extremities. DTR 2+. Plantars are flexor. Sensory Exam: Normal light touch, temperature, pinprick, vibration, and joint-position sensations. Rhomberg sign is absent. Coordination: No ataxia. No titubation. Krjzop-et-jtlj, nvas-edme-ymum test, and rapid alternating movements were normal. Gait Exam: Within normal limits. Cerebellar Signs: Ewtgxo-op-dvcu and zdhd-bw-fvzk is normal. No dysdiadochokinesia. Extrapyramidal System: No tremor, rigidity with normal facial expressions. No bradykinesia. No bradyphrenia. Normal arm swing and posture. No propulsion or retropulsion. Speech: Normal. No dysphasia or dysarthria. Assessment & Plan Assessment & Plan (1) Chronic fatigue syndrome: Code(s): G93.32 - Myalgic encephalomyelitis/chronic fatigue syndrome Category: Medical Plan: Continue Adderall XR 20mg 1 capsule twice a day. Continue Adderall 10mg 1 tablet at noon (with Adderall XR 20mg capsule at noon for total of 30mg at noon). (2) Insomnia: Code(s): G47.00 - Insomnia, unspecified Category: Medical Qualifiers: Insomnia type: unspecified Qualified Code(s): G47.00 - Insomnia, unspecified Plan: Continue zolpidem 5mg 1 tablet at bedtime. (3) Menstrual migraine: Code(s): G43.829 - Menstrual migraine, not intractable, without status migrainosus Category: Medical Qualifiers: Status migrainosus presence: without status migrainosus Intractability: not intractable Qualified Code(s): G43.829 - Menstrual migraine, not intractable, without status migrainosus Plan Meds tried for sleep: Trazodone, hydroxyzine, melatonin Medications: Refilled dextroamphetamine-amphetamine 10 mg (Adderall) Partial Fill upon patient request. 10 mg PO .daily at noon 30 tabs 0RF 30 days Coding Level of Care Code Est Pt Level 4 (67601) Diagnoses Chronic fatigue syndrome G93.32 Insomnia, unspecified type G47.00 Insomnia type: unspecified Menstrual migraine without status migrainosus, not intractable G43.829 Status migrainosus presence: without status migrainosus Intractability: not intractable
--- OUTSIDE RECORDS SUMMARY | 2025-07-06 09:59 | XMS_ITS | Clinical Summary ---
Author Organization [facility] [address] [place] [address] [place] [phone] Phone Care Team Providers Care Bible Reader Name Role Phone Sheree Astudillo MD Primary Care Provider [phone] Allergies Active Allergy Reactions Criticality Noted Date [...] Cough). Dispense 1 inhaler 06/25/20 21 Active amphetamine-de xtroamphetamin e XR (ADDERALL XR) 20 mg 24 hr capsule Take 1 Capsule by mouth every morning. [place] [facility] [place] amphetamine-de xtroamphetamin e (ADDERALL) 10 mg tablet 2 tablets (20 mg total). Active diclofenac (VOLTAREN) 1 % topical gel Apply 2 g topically 4 times daily. Shoulder Pain 06/13/20 24 Active wheat dextrin 3 gram/4 gram powder Take 4 g by mouth daily. 10/13/19 24 Active cholecalcifero l (VITAMIN D-3) 50 mcg (2,000 unit) capsule Take 1 capsule (2,000 Units total) by mouth 1 (one) time each day. 90 capsule 05/12/20 25 Active pantoprazole (PROTONIX) 40 mg EC tablet Take 1 tablet (40 mg total) by mouth 1 (one) time each day before breakfast. Do not crush, chew, or split. 90 tablet 05/12/20 25 Active b complex vitamins capsule Take 1 capsule by mouth 1 (one) time each day. 90 capsule 1 05/12/20 25 Active tirzepatide, weight loss, (Zepbound) 10 mg/0.5 mL injectionIndic ations:Hx of obesity,Bariat baljit surgery status,History of Danny-en-Y gastric bypass Inject 0.5 mL (10 mg total) under the skin every 7 (seven) days. 2 mL 06/20/20 25 Active tirzepatide, weight loss, (Zepbound) 12.5 mg/0.5 mL injectionIndic ations:Morbid obesity (CMS/HCC V24, CMS/HCC V28) Inject 0.5 mL (12.5 mg total) under the skin every 7 (seven) days for 28 days. 2 mL 05/22/20 25 025 Discontinued Active Problems Problem Noted Date Diagnosed Date Class 1 obesity 06/20/2025 Hypertensive disorder 09/23/2022 Gastroesophageal reflux disease 09/23/2022 Hypersomnia 09/23/2022 Iron deficiency anemia 07/11/2021 Erosive esophagitis 10/11/2018 [...] Encounters Date Type Department Care Team Description 06/20/2025 10:00 AM EDT Office Visit Bariatric Surgery - [place] [facility] [address] [place] [address] Rica Sullivan PA Hx of obesity (Primary Dx); Bariatric surgery status; History of Danny-en-Y gastric bypass 05/22/2025 Telephone Bariatric Surgery - [place] [facility] [address] [place] [address] Rica Sullivan PA from Last 3 Months Immunizations Immunization Administration Dates Next Due DTP 07/04/1993, 0,01/19/1989,1988,1988 [...] Date Site/Laterality Comments OTHER SURGICAL HISTORY PROCEDURE: DC LIG/TRNSXJ FLP TUBE ABDL/VAG APPR UNI/BI BARIATRIC SURGERY 05/2016 PROCEDURE: DC LAPS GSTRC RSTRICTIV PX LONGITUDINAL GASTRECTOMY; COMMENT: [...] cancer; COMMENT: pt BRCA negative, low risk Karely = 10.5% Erosive esophagitis 10/11/2018 DX:Erosive e sophagitis Tobacco use 10/11/2018 DX:Tobacco use Sore throat DX:Sore throat Dysphagia DX:Dysphagia Dysphagia DX:Dysphagia Hiatal hernia DX:Hiatal hernia History of gastric surgery DX:Hi story of gastric surgery Gastro-esophageal reflux dis ease without esophagitis DX:Gastro-esophageal reflux disease without esophagitis Hypertensive disorder 09/23/2022 Family History Medical History Relation Name Comments Breast cancer Aunt paternal aunt Arthritis Father Coronary artery disease Father bypa ss, [place] Diabetes Father Hypertension Father Stroke Father Other: [...] Date Smoking Tobacco: Every Day Cigarettes 0.5 7.6 Started: 12/17/2017 Smokeless Tobacco: Never Alcohol Use [...] Sign Reading Time Taken Comments Blood Pressure 116/73 06/20/2025 9:56 AM EDT Pulse 123 06/20/2025 9:56 AM EDT Temperature 36.6 C (97.9 F) 02/23/2025 8:14 AM EDT Respiratory Rate - - Oxygen Saturation - - Inhaled Oxygen Concentration - - Weight 58 kg (127 lb 12.8 oz) 06/20/2025 9:56 AM EDT Height 152.4 cm (5') 06/20/2025 9:56 AM EDT Body Mass Index 24.96 06/20/2025 9:56 AM EDT Plan of Treatment Upcoming Encounters Date Type Department Care Team (Late st Contact Info) Description 11/16/2025 9:00 AM EDT Office Visit Bariatric Surgery - [address] [place] [address] Rica Sullivan PA [address] [place] [phone] Health Maintenance Due Date Last Done Comments Pneumococcal Vaccine: Pediatrics (0 to 5 Years) and At-Risk Patients (6 to 49 Years) (1 of 2 - PCV) 2007 HPV Vaccines (1 - 3-dose SCDM series) 2015 Social Influencers of Health Screening 08/10/2022 Depression Screening 09/07/2024 COVID-19 Vaccine ( - season) 2025 01/22/2021, 12/26/2020 Influenza Vaccine (#1) 2025 1, 08/04/2006, 06/19/2005 Hypertension/CHF/CAD Annual BMP Blood Test 06/20/2026 06/20/2025, 12/22/2024, 04/11/2024, Additional history exists Cervical Cancer Screening: HPV 07/04/2027 07/04/2022 Cholesterol Screening (Lipid Panel) 06/09/2028 06/09/2023 DTaP,Tdap,and Td Vaccines (9 - Td or Tdap) 06/25/2031 06/25/2021, 04/07/2011, 04/01/2001, Additional history exists RSV Immunization Adult Patients (1 - 1-dose 75+ series) 2063 MMR Vaccines Completed 11/23/1989, 09/04/1989 IPV Vaccines [...] Procedure Name Priority Date/Time Associated Diagnosis Comments PARATHYROID HORMONE INTACT Routine 06/20/2025 10:27 AM EDT Hx of obesity Bariatric surgery status History of Danny-en-Y gastric bypass SELENIUM SERUM Routine 06/20/2025 10:27 AM EDT Hx of obesity Bariatric surgery status History of Danny-en-Y gastric bypass VITAMIN B12 Routine 06/20/2025 10:27 AM EDT Hx of obesity Bariatric surgery status History of Danny-en-Y gastric bypass VITAMIN B1 Routine 06/20/2025 10:27 AM EDT Hx of obesity Bariatric surgery status History of Danny-en-Y gastric bypass VITAMIN A Routine 06/20/2025 10:27 AM EDT Hx of obesity Bariatric surgery status History of Danny-en-Y gastric bypass VITAMIN B6 Routine 06/20/2025 10:27 AM EDT Hx of obesity Bariatric surgery status History of Danny-en-Y gastric bypass VITAMIN D 25 HYDROXY Routine 06/20/2025 10:27 AM EDT Hx of obesity Bariatric surgery status History of Danny-en-Y gastric bypass ZINC Routine 06/20/2025 10:27 AM EDT Hx of obesity Bariatric surgery status History of Danny-en-Y gastric bypass IRON AND TIBC Routine 06/20/2025 10:27 AM EDT Hx of obesity Bariatric surgery status History of Danny-en-Y gastric bypass FOLATE Routine 06/20/2025 10:27 AM EDT Hx of obesity Bariatric surgery status History of Danny-en-Y gastric bypass COPPER, SERUM Routine 06/20/2025 10:27 AM EDT Hx of obesity Bariatric surgery status History of Danny-en-Y gastric bypass COMPREHENSIVE METABOLIC PANEL Routine 06/20/2025 10:27 AM EDT Hx of obesity Bariatric surgery status History of Danny-en-Y gastric bypass LIPID PANEL Routine 06/09/2023 HM HPV Routine 07/04/2022 HM HEPATITIS C SCREENING Routine 04/22/2016 HM HIV SCREENING Routine 04/22/2016 from Last 3 Months or Most Recently Relevant to Health Maintenance Results * Iron and TIBC (06/20/2025 10:27 AM EDT) Iron 94 40 - 150 mcg/dL LAB CHEMISTRY METHOD 06/20/2025 6:12 PM EDT [facility] TIBC 334 250 - 450 mcg/dL LAB CHEMISTRY METHOD 06/20/2025 6:12 PM EDT [facility] Iron Saturation 28 15 - 50 % LAB CHEMISTRY METHOD 06/20/2025 6:12 PM EDT [facility] Blood Venous blood specimen / Unknown Venipuncture / Unknown 06/20/2025 10:27 AM EDT 06/20/2025 10:27 AM EDT us Rica COATES LAB BLOOD ORDERABLES Final R esult [facility] [address] [place] [address], [place] [phone] * Copper, serum (06/20/2025 10:27 AM EDT) Copper 1531 810 - 1990 ug/L 06/26/2025 9:36 AM EDT [facility] Comment: Copper values may be elevated to twice the normal levels in . Elevated results may be due to sample collected in a non-certified trace element-free tube. This test was developed and the performance characteristics determined by [facility]. It has not been cleared or approved by the FDA. The laboratory is regulated under CLIA as qualified to perform high-complexity testing. This test is used for patient testing purposes. It should not be regarded as investigational or for research. Test performed at [facility], [address] , [place] [address] Dena Crump MD, PhD - Pet Caretaker Blood Venous blood specimen / Unknown Venipuncture / Unknown 06/20/2025 10:27 AM EDT 06/20/2025 10:27 AM EDT us Strauss E Laurie COATES LAB BLOOD ORDERABLES Final R esult [facility] [address] [place] [address] * Zinc (06/20/2025 10:27 AM EDT) Zinc 76 60 - 130 ug/dL 06/23/2025 11:01 AM EDT [facility] Comment: Elevated results may be due to sample collected in a non-certified trace element-free tube. This test was developed and the performance characteristics determined by [facility]. It has not been cleared or approved by the FDA. The laboratory is regulated under CLIA as qualified to perform high-complexity testing. This test is used for patient testing purposes. It should not be regarded as investigational or for research. Test performed at [facility], [address] [place] [address] Dena Crump MD, PhD - Pet Caretaker Blood Venous blood specimen / Unknown Venipuncture / Unknown 06/20/2025 10:27 AM EDT 06/20/2025 10:27 AM EDT Rica E Laurie COATES LAB BLOOD ORDERABLES Final R esult [facility] [address] [place] [address] * (ABNORMAL) Vitamin A (06/20/2025 10:27 AM EDT) Pathologist [facility] Vitamin A 25(L) 38 - 106 ug/dL 06/26/2025 6:[address] [facility] Comment: This test was developed and the performance characteristics determined by [facility]. It has not been cleared or approved by the FDA. The laboratory is regulated under CLIA as qualified to perform high-complexity testing. This test is used for patient testing purposes. It should not be regarded as investigational or for research. Test performed at [facility], [address] [place] [address] Dena Crump MD, PhD - Pet Caretaker Blood Venous blood specimen / Unknown Venipuncture / Unknown 06/20/2025 10:27 AM EDT 06/20/2025 10:27 AM EDT Rica COATES LAB BLOOD ORDERABLES Final R esult [facility] [address] [place] [address] * Selenium serum (06/20/2025 10:27 AM EDT) Pathologist [facility] Selenium 142 63 - 160 mcg/L 06/25/2025 6:56 PM EDT [facility] Comment: This test was developed and its analytical performance characteristics have been determined by [facility] [place] [place]. It has not been cleared or approved by the U.S. Food and Drug Administration. This assay has been validated pursuant to the CLIA regulations and is used for clinical purposes. Test Performed by [facility], [facility], [address] [place] [address] Vikash Arriaza M.D., Ph.D., Director of Laboratories , CLIA [id number] Blood Venous blood specimen / Unknown Venipuncture / Unknown 06/20/2025 10:27 AM EDT 06/20/2025 10:27 AM EDT Rica COATES LAB BLOOD ORDERABLES Final R esult [facility] [address] [place] [address] * Vitamin D 25 hydroxy (06/20/2025 10:27 AM EDT) Vit D, 25-Hydroxy 57.4 30.0 - 80.0 ng/mL LAB CHEMISTRY METHOD 06/20/2025 6:06 PM EDT [facility] Blood Venous blood specimen / Unknown Venipuncture / Unknown 06/20/2025 10:27 AM EDT 06/20/2025 10:27 AM EDT Rica COATES LAB BLOOD ORDERABLES Final R esult [facility] [address] [place] [address], * Vitamin B1 (06/20/2025 10:27 AM EDT) Vitamin B1 Whole Blood 53 38 - 122 ug/L 06/26/2025 12:26 PM EDT [facility] Comment: This test was developed and the performance characteristics determined by [facility]. It has not been cleared or approved by the FDA. The laboratory is regulated under CLIA as qualified to perform high-complexity testing. This test is used for patient testing purposes. It should not be regarded as investigational or for research. Test performed at [facility], [address] [place] [address] Dena Crump MD, PhD - Pet Caretaker Blood Venous blood specimen / Unknown Venipuncture / Unknown 06/20/2025 10:27 AM EDT 06/20/2025 10:27 AM EDT Rica COATES LAB BLOOD ORDERABLES Final R esult Performing Organization Address City/[facility]/ZIP Co de Phone Number [facility] [address] [place] [address] * Vitamin B6 (06/20/2025 10:27 AM EDT) Vitamin B6 (Pyridoxine) Level 25 5 - 50 ug/L 06/26/2025 3:33 PM EDT [facility] Comment: This test was developed and the performance characteristics determined by [facility]. It has not been cleared or approved by the FDA. The laboratory is regulated under CLIA as qualified to perform high-complexity testing. This test is used for patient testing purposes. It should not be regarded as investigational or for research. Test performed at [facility], [address] , [place] [address] Dena Crump MD, PhD - Pet Caretaker Blood Venous blood specimen / Unknown Venipuncture / Unknown 06/20/2025 10:27 AM EDT 06/20/2025 10:27 AM EDT Rica COATES LAB BLOOD ORDERABLES Final R esult [facility] [address] [place] [address] * Parathyroid hormone intact (06/20/2025 10:27 AM EDT) PTH 57.9 18.5 - 88.0 pcg/mL LAB CHEMISTRY METHOD 06/20/2025 6:06 PM EDT [facility] Blood Venous blood specimen / Unknown Venipuncture / Unknown 06/20/2025 10:27 AM EDT 06/20/2025 10:27 AM EDT Rica COATES LAB BLOOD ORDERABLES Final R esult Performing Organization Address City/[facility] Co de Phone Number [facility] [address] [place] [address], * (ABNORMAL) Folate (06/20/2025 10:27 AM EDT) Folate >20.0(H) 2.8 - 17.0 ng/ml LAB CHEMISTRY METHOD 06/20/2025 6:03 PM EDT [facility] Blood Venous blood specimen / Unknown Venipuncture / Unknown 06/20/2025 10:27 AM EDT 06/20/2025 10:27 AM EDT Rica COATES LAB BLOOD ORDERABLES Final R esult [facility] [address] [place] [address], [place] [phone] * Vitamin B12 (06/20/2025 10:27 AM EDT) [facility] Vitamin B-12 618 250 - 900 pcg/mL LAB CHEMISTRY METHOD 06/20/2025 6:03 PM EDT [facility] Blood Venous blood specimen / Unknown Venipuncture / Unknown 06/20/2025 10:27 AM EDT 06/20/2025 10:27 AM EDT us Rica COATES LAB BLOOD ORDERABLES Final R esult [facility] [address] [place] [address], [place] [phone] * Comprehensive metabolic panel (06/20/2025 10:27 AM EDT) [facility] Sodium 141 133 - 145 mmol/L LAB CHEMISTRY METHOD 06/20/2025 6:03 PM [facility] Potassium 4.0 3.5 - 5.5 mmol/L LAB CHEMISTRY METHOD 06/20/2025 6:03 PM [facility] Chloride 108 96 - 110 mmol/L LAB CHEMISTRY METHOD 06/20/2025 6:03 PM [facility] CO2 27 21 - 32 mmol/L LAB CHEMISTRY METHOD 06/20/2025 6:03 PM [facility] Anion Gap 6 3 - 11 LAB CHEMISTRY METHOD 06/20/2025 6:03 PM [facility] Glucose 84 70 - 100 mg/dL LAB CHEMISTRY METHOD 06/20/2025 6:03 PM [facility] BUN 6 5 - 25 mg/dL LAB CHEMISTRY METHOD 06/20/2025 6:03 PM [facility] Creatinine 0.54 0.50 - 1.10 mg/dL LAB CHEMISTRY METHOD 06/20/2025 6:03 PM [facility] eGFR 122 >=60 mL/min/1. 73m2 LAB CHEMISTRY METHOD 06/20/2025 6:03 PM [facility] Comment:Calculation based on the Chronic Kidney Disease Epidemiology Collaboration (CKD-EPI) equation refit without adjustment for race. BUN/Creatinine Ratio 11.1 LAB CHEMISTRY METHOD 06/20/2025 6:03 PM [facility] Calcium 9.3 8.5 - 10.5 mg/dL LAB CHEMISTRY METHOD 06/20/2025 6:03 PM [facility] AST (SGOT) 19 10 - 42 unit/L LAB CHEMISTRY METHOD 06/20/2025 6:03 PM [facility] ALT (SGPT) 20 10 - 60 unit/L LAB CHEMISTRY METHOD 06/20/2025 6:03 PM [facility] Alkaline Phosphatase 73 42 - 121 unit/L LAB CHEMISTRY METHOD 06/20/2025 6:03 PM [facility] Total Protein 6.8 6.0 - 8.0 g/dL LAB CHEMISTRY METHOD 06/20/2025 6:03 PM [facility] Albumin 3.6 3.2 - 5.0 g/dL LAB CHEMISTRY METHOD 06/20/2025 6:03 PM [facility] Total Bilirubin 0.3 0.0 - 1.4 mg/dL LAB CHEMISTRY METHOD 06/20/2025 6:03 PM [facility] Blood Venous blood specimen / Unknown Venipuncture / Unknown 06/20/2025 10:27 AM EDT 06/20/2025 10:27 AM EDT us Rica COATES LAB BLOOD ORDERABLES Final R esult [facility] [address] [place] [address], * (ABNORMAL) Lipid panel (06/09/2023) [facility] LDL/HDL Ratio 4 0 - 4 Triglycerides 92 0 - 150 mg/dL Cholesterol 207(A) 0 - 200 mg/dL HDL 58 >=40 mg/dL LDL Cholesterol 131(A) 0 - 100 mg/dL Blood Venous blood specimen / Unknown [facility] Provider LAB BLOOD ORDERABLES Rupal l Result * Cervical Cancer Screening: HPV (07/04/2022) [facility] Cervical Cancer Screening: HPV Negative, Abstracted [facility] Provider HEALTH MAINTENANCE Final Result * HIV Screening (04/22/2016) [facility] HIV Screening Abstracted [facility] Provider HEALTH MAINTENANCE Final Result * Hepatitis C Screening (04/22/2016) [facility] Hepatitis C Screening Abstracted [facility] Provider HEALTH MAINTENANCE Final Result from Last 3 Months or Most Recently Relevant to Health Maintenance Insurance [facility] Care Teams Bible Reader Relationship Specialty Start Date End Date Sheree Astudillo MD [address] [place] [phone] PCP - General Internal Medicine 07/28/24
== END 2025-07-06 09:14 | disposition home or self-care (01) ==
LOC: HO.HSM 08:59
PROVIDERS: PCP Internal Medicine; Visit Provider Registered Nurse
DX: G93.32 Myalgic encephalomyelitis/chronic fatigue syndrome (principal); G47.00 Insomnia, unspecified; G43.829 Menstrual migraine, not intractable, without status migrainosus
CPT/HCPCS: 99214

== ENCOUNTER → 2025-07-06 08:58 | Outpatient (BNVA) | payer OTHER, SELFPAY | PROVIDERS: PCP Internal Medicine; Visit Provider Registered Nurse | DX: G93.32 Myalgic encephalomyelitis/chronic fatigue syndrome (principal); G47.00 Insomnia, unspecified; G43.829 Menstrual migraine, not intractable, without status migrainosus; Z79.899 Other long term (current) drug therapy | CPT/HCPCS: 99212 ==